=== PATIENT | female | born 1995 | race Two or more races ===

== ENCOUNTER → 2025-07-11 | Emergency (ER) | payer OTHER ==
[~2025-07-11] VITALS: Ht 152.4 cm; Wt 59.0 kg
[2025-07-11 15:49] LABS: BASO % 0.4 % (0.1-1.2); EOS # 0.10 (0.04-0.54); EOS % 0.8 % (0.7-7.0); LYMPH # 2.34 (1.18-3.74); LYMPH % 19.2 % (19.3-53.1); MEAN PLATELET VOLUME 8.80 fl (9.4-12.4); MONO # 0.89 (0.24-0.82); MONO % 7.3 % (4.7-12.5); NEUT # 8.67 (1.56-6.13); NEUT % 71.4 % (34.0-71.1); RED CELL DISTRIBUTION WIDTH 11.3 % (11.6-14.4)
[2025-07-11 16:07] LABS: URINE APPEARANCE Clear; URINE BILIRRUBIN Negative (NEGATIVE); URINE BLOOD Small; URINE COLOR Yellow; URINE GLUCOSE Negative (NEGATIVE); URINE KETONE 15 (NEGATIVE); URINE LEUKOCYTE Negative; URINE NITRATE Negative; URINE PROTEIN Negative (NEGATIVE); URINE UROBILINOGEN 1.0 E.U./dl
[2025-07-11 16:12] LABS: URINE BACTERIA 673.1 uL (0.0-1933); URINE EPITHELIAL CELLS 24.3 uL (0.0-38.8); URINE RBC 47.0 uL (0.0-20.8); URINE WBC 9.8 uL (0.0-23.2)
[2025-07-11 16:16] LABS: URINE CAST 0.00 uL (0.0-1.40)
== END | disposition left against medical advice (07) ==
LOC: ER 14:14
PROVIDERS: Emergency Medicine
DX: O20.8 Other hemorrhage in early pregnancy (principal); Z3A.01 Less than 8 weeks gestation of pregnancy; N93.9 Abnormal uterine and vaginal bleeding, unspecified; R10.2 Pelvic and perineal pain

== ENCOUNTER 2025-07-22 17:44 | Emergency (ER) | payer OTHER ==
[~2025-07-22] VITALS: Ht 152.4 cm; Wt 59.0 kg
[2025-07-22 20:42] LABS: BASO % 0.4 % (0.1-1.2); EOS # 0.20 (0.04-0.54); EOS % 1.4 % (0.7-7.0); LYMPH # 2.47 (1.18-3.74); LYMPH % 17.6 % (19.3-53.1); MEAN PLATELET VOLUME 9.40 fl (9.4-12.4); MONO # 1.16 (0.24-0.82); MONO % 8.3 % (4.7-12.5); NEUT # 10.01 (1.56-6.13); NEUT % 71.6 % (34.0-71.1); RED CELL DISTRIBUTION WIDTH 11.2 % (11.6-14.4)
[2025-07-22 21:07] LABS: INR 1.05
[2025-07-22 21:44] LABS: ALT/SGPT 17.0 U/L (12-78); AST/SGOT 7.0 U/L (15-37); BILIRUBIN TOTAL 0.25 mg/dL (0.3-1.2); BUN CREA RATIO 16.0 (7.0-25.0); CREATININE SERUM 0.5 mg/dL (0.55-1.02); GFR 146.91; GLOBULINA 3.8 G/DL (2.4-3.5); GLUCOSE FASTING 89.0 mg/dL (65-100); OSMOLALITY SERUM 275.0 MOSM/KG (275-295)
[2025-07-22 21:48] LABS: HCG QUANTITATIVE 66594.0 mUI/mL (1-3)
== END 2025-07-22 22:57 | disposition home or self-care (01) ==
LOC: ER 17:45
PROVIDERS: General Practice
DX: O20.8 Other hemorrhage in early pregnancy (principal); Z3A.01 Less than 8 weeks gestation of pregnancy; N93.9 Abnormal uterine and vaginal bleeding, unspecified; O45.90 Premature separation of placenta, unspecified, unspecified trimester

== ENCOUNTER 2025-08-16 10:35 | Emergency (ER) | payer OTHER ==
[~2025-08-16] VITALS: Ht 152.4 cm; Wt 53.1 kg
[2025-08-16] MEDS ORDERED: FAMOTIDINE/PF 20 MG/2 ML VIAL ONE ×2 (11:44→12:01)
[2025-08-16] MEDS ORDERED: ONDANSETRON HCL 2 MG/ML VIAL ONE (11:44)
[2025-08-16] MEDS ORDERED: 0.9 % SODIUM CHLORIDE 1,000 ML IV ONE (11:45)
[2025-08-16] MEDS ORDERED: FAMOTIDINE/PF 20 MG/2 ML VIAL IV ONE (11:45)
[2025-08-16] MEDS ORDERED: ONDANSETRON HCL 2 MG/ML VIAL IV ONE (11:45)
[2025-08-16 11:49] LABS: BASO % 0.2 % (0.1-1.2); EOS # 0.05 (0.04-0.54); EOS % 0.4 % (0.7-7.0); LYMPH # 0.52 (1.18-3.74); LYMPH % 4.1 % (19.3-53.1); MEAN PLATELET VOLUME 9.40 fl (9.4-12.4); MONO # 0.37 (0.24-0.82); MONO % 2.9 % (4.7-12.5); NEUT # 11.57 (1.56-6.13); NEUT % 91.8 % (34.0-71.1); RED CELL DISTRIBUTION WIDTH 11.5 % (11.6-14.4)
[2025-08-16 12:13] LABS: ALT/SGPT 26 U/L (12-78); AST/SGOT 11 U/L (15-37); BILIRUBIN TOTAL 0.59 mg/dL (0.3-1.2); BUN CREA RATIO 11 (7.0-25.0); CREATININE SERUM 0.61 mg/dL (0.55-1.02); GFR 116.79; GLOBULINA 4.2 G/DL (2.4-3.5); GLUCOSE FASTING 97 mg/dL (65-100); OSMOLALITY SERUM 272 MOSM/KG (275-295)
[2025-08-16] MEDS ORDERED: ZOFRAN8 MG PO (17:29)
== END 2025-08-16 20:17 | disposition home or self-care (01) ==
LOC: ER 10:36
DX: Z33.1 Pregnant state, incidental (principal); Z3A.11 11 weeks gestation of pregnancy; K52.9 Noninfective gastroenteritis and colitis, unspecified; R11.10 Vomiting, unspecified
CPT/HCPCS: 36415; 76801; 76817; 96365; 96366; 99284; J2405; J3490; J7030